=== PATIENT | female | born 1970 | race Caucasian/White ===

== ENCOUNTER 2016-12-07 10:24 | Emergency (ER) | payer BC, OTHER ==
--- NOTE | 2016-12-07 11:01 | ED ---
General Adult HPI - General Chief complaint: Neuro Symptoms/Deficit Stated complaint: Left facial weakness Time Seen by Provider: 12/07/16 10:51 Source: patient, RN notes reviewed Mode of arrival: ambulatory Limitations: no limitations - History of Present Illness Initial comments: Patient is a pleasant 46-year-old female presenting to the emergency department complaining of left facial weakness. Onset of symptoms was when she woke this morning. Patient recognized that she had some difficulty shutting her eye. Patient states she is able to shut it somewhat however not completely. Patient has noticed some left facial weakness as well. Symptoms are limited to the face. No arm or leg weakness. No confusion or speech problems. - Related Data Home Medications Medication Instructions Recorded Confirmed Sertraline [Zoloft] 100 mg PO DAILY 01/01/16 12/07/16 Amoxicillin/Potassium Clav 400 mg PO QID 12/07/16 12/07/16 [Amox-Clav 200-28.5 mg/5 ml Maria M] Previous Rx's Medication Instructions Recorded predniSONE 3 tab PO DAILY #21 tab 12/07/16 valACYclovir HCL [Valtrex] 1,000 mg PO TID #21 tablet 12/07/16 Allergies Allergy/AdvReac Type Severity Reaction Status Date / Time duloxetine [From Cymbalta] Allergy Anaphylaxis Verified 12/07/16 11:08 Review of Systems ROS Statement: Those systems with pertinent positive or pertinent negative responses have been documented in the HPI. ROS Other: All systems not noted in ROS Statement are negative. Constitutional: Denies: fever Eyes: Denies: eye pain ENT: Reports: ear pain (Patient states she has had some mild discomfort behind the left ear for the past week or so.) Respiratory: Denies: cough, dyspnea Cardiovascular: Denies: chest pain Endocrine: Denies: fatigue Gastrointestinal: Denies: abdominal pain Genitourinary: Denies: dysuria Musculoskeletal: Denies: back pain Skin: Denies: rash Neurological: Reports: weakness (Left face). Denies: headache, numbness, paresthesias, confusion Past Medical History Additional Past Medical History / Comment(s): MS History of Any Multi-Drug Resistant Organisms: None Reported Past Surgical History: Tubal Ligation Past Psychological History: Anxiety, Depression Smoking Status: Former smoker Past Alcohol Use History: None Reported Past Drug Use History: None Reported General Exam Limitations: no limitations General appearance: alert, in no apparent distress Head exam: Present: atraumatic Eye exam: Present: normal appearance, PERRL, EOMI ENT exam: Present: normal oropharynx, TM's normal bilaterally, other (No tenderness or swelling or erythema near the left mastoid.) Neck exam: Present: normal inspection Respiratory exam: Present: normal lung sounds bilaterally Cardiovascular Exam: Present: regular rate, normal rhythm GI/Abdominal exam: Present: soft. Absent: tenderness Extremities exam: Present: normal inspection Neurological exam: Present: alert, oriented X3 Expanded Neurological exam: Present: other (Patient does have left facial palsy that does also involve the forehead. Difficulty shutting left eye.) Cranial nerves: EOM's Intact: Normal, Facial Sensation: Normal Cerebellar function: Finger to Nose: Normal Sensory exam: Upper Extremity Light Touch: Normal, Lower Extremity Light Touch: Normal Motor strength exam: RUE: 5, LUE: 5, RLE: 5, LLE: 5 Eye Response: (4) open spontaneously Motor Response: (6) obeys commands Verbal Response: (5) oriented Psychiatric exam: Present: normal affect, normal mood Skin exam: Present: normal color Course Vital Signs 12/07/16 12/07/16 10:29 11:33 Temperature 97.0 F L Pulse Rate 89 78 Respiratory 17 18 Rate Blood Pressure 128/63 118/77 O2 Sat by Pulse 99 97 Oximetry EKG Findings - EKG Comments: EKG Findings:: Normal sinus rhythm 80. MN 150. QRS 82. QT 358. QTC 412. Normal axis. Normal QRS. Normal ST-T. Medical Decision Making - Medical Decision Making Patient reevaluated and resting comfortably in bed. Patient updated on results and need for follow-up. - Radiology Data Radiology results: image reviewed (Computed tomography scan of the brain shows no acute process.) Disposition Clinical Impression: Ly's palsy Disposition: HOME SELF-CARE Condition: Stable Instructions: Ly Palsy (ED) Additional Instructions: Please follow-up with your primary care physician and neurologist this week. Return for fevers, other areas of weakness, headache, worsening or changing symptoms or other concerns. Please use lubricating drops to the left eye 4 times daily and prior to bed. Tape the left eye shut at bedtime to avoid dryness. Prescriptions: predniSONE 3 tab PO DAILY #21 tab valACYclovir HCL [Valtrex] 1,000 mg PO TID #21 tablet Referrals: Raiza Del Angel MD [Primary Care Provider] - 1-2 days Time of Disposition: 11:56
--- NOTE | 2016-12-07 11:36 | CT ---
EXAMINATION TYPE: CT brain wo con DATE OF EXAM: 12/07/2016 COMPARISON: MRI brain December 21, 2015 HISTORY: Lt facial numbness/weakness and Rt facial droop CT DLP: 1054.2 mGycm. Automated Exposure Control for Dose Reduction was Utilized. TECHNIQUE: CT scan of the head is performed without contrast. FINDINGS: There is no acute intracranial hemorrhage, mass effect, or midline shift identified. Rodríguez -white matter differentiation is preserved. White matter changes are seen better on MRI versus CT. Th e ventricles and sulci are within normal limits in size. The globes are intact and the visualized si nuses are clear. IMPRESSION: No acute intracranial hemorrhage, mass effect, or midline shift is seen. If clinical concern for acute stroke persists further investigation with MRI study may be warranted.
[2016-12-07 11:40] VITALS: RESP 18
[2016-12-07 12:10] VITALS: BP 140/64; PULSE 77; TEMP 98.2
== END 2016-12-07 12:10 | disposition home or self-care (01) ==
LOC: EC 10:24
DX: G51.0 Bell's palsy (principal); F32.9 Major depressive disorder, single episode, unspecified; F41.9 Anxiety disorder, unspecified; Z87.891 Personal history of nicotine dependence; Z88.8 Allergy status to other drugs, medicaments and biological substances; Z79.899 Other long term (current) drug therapy
CPT/HCPCS: 70450; 93005; 99284